=== PATIENT | female | born 1970 | race Caucasian/White ===

== ENCOUNTER → 2021-04-13 | Outpatient (CLI) | payer BC ==
--- NOTE | 2021-04-13 15:54 | Diagnostic Imaging Report ---
PROCEDURE: US Thyroid. TECHNIQUE: Multiple real-time grayscale images were obtained of the thyroid in various projections. INDICATION: Enlarged thyroid. Both lobes of the thyroid gland are enlarged. The right lobe measures 6.1 x 2.2 x 2.4 cm and the left lobe measures 6.9 x 2.4 x 3.4 cm. Isthmus is 4 mm in thickness. The left lobe does contain mixed solid and cystic mass measuring 4.3 x 2.3 x 2.9 cm. The right lobe contains numerous hypoechoic nodules. Largest measures 1.3 x 0.6 x 1.3 cm. No microcalcifications are seen. IMPRESSION: Thyromegaly with multiple bilateral nodules. There is a dominant mixed solid and cystic nodule in the left lobe. Fine-needle aspiration could be performed. Dictated by: Dictated on workstation # [id number]
== END ==
LOC: RAD 15:00
PROVIDERS: ATTEND Family Medicine
DX: E04.2 Nontoxic multinodular goiter (principal)
CPT/HCPCS: 76536

== ENCOUNTER → 2021-04-24 | Outpatient (CLI) | payer BC ==
[~2021-04-24] VITALS: Ht 165.1 cm; Wt 93.2 kg
[~2021-04-24] MED LIST: LIDOCAINE 1% INJ 20 ML 20 ML VIAL INJ ONE
--- NOTE | 2021-04-24 12:54 | Diagnostic Imaging Report ---
INDICATION: Left lobe thyroid nodule. Patient presents for ultrasound-guided fine needle aspiration and Rotex biopsy. FINDINGS: Patient was brought to the procedure room, placed on table in the supine position. Ultrasound imaging of the left neck was performed to evaluate appropriate entry site. Left neck was then prepped and draped in the usual sterile fashion. Small amount 1% lidocaine was utilized for local anesthesia. A total of four passes were made into the more peripheral solid component of the mixed nodule utilizing 25-gauge needles and fine-needle aspiration technique. There is a single pass into the cystic nature of the lesion and small amount of fluid was aspirated for cytology evaluation. The final pass was made with a Rotex needle and a Rotex biopsy of the more solid component along the periphery was performed. Hemostasis was obtained using manual compression. Patient tolerated the procedure well and left the department in stable condition. IMPRESSION: Successful ultrasound-guided fine needle aspiration and Rotex biopsy of left lobe mixed solid and cystic nodule. Pathology results are currently pending. Dictated by: Dictated on workstation # [id number]
== END ==
LOC: RAD 11:00
PROVIDERS: ATTEND Family Medicine
DX: E04.2 Nontoxic multinodular goiter (principal)
CPT/HCPCS: 10005